=== PATIENT | female | born 1950 | race Caucasian/White ===

== ENCOUNTER → 2018-08-29 13:48 | Outpatient (CLI) | payer MEDICARE, OTHER, SELFPAY ==
--- NOTE | 2018-08-29 13:52 | DI.RAD.S_ITS ---
PROCEDURE: FL BARIUM SWALLOW INDICATIONS: dysphagia with and without eating. Intermittant. COMPARISON: None. FINDINGS: Function: There is mild esophageal dysmotility. No elicited gastroesophageal reflux. There is normal transit of a calibrated barium tablet through the esophagus into the stomach. Morphology: Air-contrast images demonstrate normal mucosal morphology. No esophageal strictures, extrinsic mass effects, or diverticula. A tiny sliding hiatal hernia is noted. Limited images of the stomach demonstrate normal appearance. There is a moderate-sized duodenal diverticulum arising from the mesenteric side of the vertical segment of the duodenum. IMPRESSION: 1. Mild esophageal dysmotility. 2. A tiny sliding hiatal hernia. 3. A moderate-sized duodenal diverticulum. Dictated by: Stephen Lott M.D. on 08/29/2018 at 15:01 Approved by: Stephen Lott M.D. on 08/29/2018 at 15:04
== END ==
PROVIDERS: PCP Physician Assistant Medical; Visit Provider Specialist
DX: R13.10 Dysphagia, unspecified (principal); K22.4 Dyskinesia of esophagus; K44.9 Diaphragmatic hernia without obstruction or gangrene; K57.10 Diverticulosis of small intestine without perforation or abscess without bleeding
CPT/HCPCS: 74220

== ENCOUNTER → 2022-10-20 09:51 | Outpatient (CLI) | payer MEDICARE, OTHER, SELFPAY ==
[2022-10-20 10:08] LABS: Appearance Urine UA CLEAR; Bilirubin Urine UA NEGATIVE (NEGATIVE); Color Urine UA YELLOW; Glucose Urine UA NEGATIVE (Negative); Ketones Urine UA NEGATIVE (NEGATIVE); Leukocyte Esterase Urine UA NEGATIVE (NEGATIVE); Nitrite Urine UA POSITIVE (Negative); Occult Blood Urine UA NEGATIVE (Negative); Protein Urine UA NEGATIVE (Negative); Urobilinogen Urine UA 0.2 E.U./dL (0.2)
[2022-10-20 10:18] LABS: Bacteria Urine None Seen; Culture Indicated Urine Specimen Cultured; RBC Urine None Seen (0-5/HPF); Squamous Epithelial Cell Urine None Seen (0-5/HPF); WBC Urine None Seen (0-5/HPF)
== END ==
PROVIDERS: PCP Physician Assistant Medical; Visit Provider Specialist
DX: N81.6 Rectocele (principal); N81.11 Cystocele, midline; N95.2 Postmenopausal atrophic vaginitis; R33.9 Retention of urine, unspecified; R39.9 Unspecified symptoms and signs involving the genitourinary system
CPT/HCPCS: 51798; 81001; 81002; 87086; 99215